=== PATIENT | male | born 1955 | race Caucasian/White ===

== ENCOUNTER 2023-07-08 15:45 | Inpatient (IN) | payer MEDICARE, SELFPAY ==
--- NOTE | ~2023-07-08 | CT_ITS ---
EXAMINATION: CT abdomen pelvis w con DATE: 07/08/2023 19:50 INDICATION: Perisigmoid abscess. TECHNIQUE: Computed tomography (CT) of the abdomen and pelvis was performed with 100 mL Omnipaque 350 intravenous contrast. Automated exposure control and iterative reconstruction technique were employe d. The dose-length product was 171.47 mGy-cm. COMPARISON: None. FINDINGS: The visualized portions of the lung bases demonstrate mild atelectasis. No pleural effusion . The heart size is normal. No pericardial effusion. The liver, spleen, gallbladder, pancreas, adrena l glands, and kidneys are normal. There is calcified atherosclerosis of the aorta and many of the [facility] er arteries. There is wall thickening of the sigmoid colon, which is small in caliber. The colon is d istended proximal to this area. There is a 2.1 x 0.8 x 2.4 cm perisigmoid abscess. The appendix is no rmal. There are no pathologically enlarged lymph nodes. There is no free intraperitoneal fluid. There is a chronic compression fracture of L3. There is moderate thoracic spondylosis and mild lumbar spon dylosis. IMPRESSION: 1. Sigmoid diverticulitis with stricture, 2.1 x 0.8 x 2.4 cm perisigmoid abscess, and partial bowel o bstruction. Reviewed, dictated and finalized at location E. IMPRESSION: 1. Sigmoid diverticulitis with stricture, 2.1 x 0.8 x 2.4 cm perisigmoid absces s, and partial bowel obstruction.
[2023-07-08 15:50] VITALS: BP 163/67; PULSE 100; RESP 18; TEMP 36.4; O2SAT 99
--- NOTE | 2023-07-08 15:55 | ED.GENADULT ---
HPI - General Adult General Chief complaint: Abdominal Pain <[place] PA-C - Last Filed: 07/08/23 15:57> Stated complaint: abscess colon- sent by MD after CT <[place] PA-C - Last Filed: 07/08/23 15:57> Time Seen by Provider: 07/08/23 15:51 <[place] PA-C - Last Filed: 07/08/23 15:57> Focused HPI: This is a 68-year-old male with PMH of COPD who presents to the ED for chief complaint of abdominal pain. Reports that he had an outpatient scan at another facility today ordered by PCP today that showed ?abscess on my colon. ? He reports he was told to go to the ER. Patient reports he has nausea but no vomiting. Denies fevers, chills. Endorses 2 weeks of diarrhea but no GI bleeding symptoms. Denies chest pain, shortness of breath, cough, flank pain or urinary symptoms. GENERAL: Well-appearing, well-nourished, and in no acute distress. HEAD: Normocephalic, atraumatic. CHEST: Clear to auscultation. No respiratory distress. HEART: Regular rate and rhythm. ABD: Mild lower abdominal tenderness. Abdomen is soft, no rigidity. NEURO: Alert and oriented x3. Patient screened in triage and initial orders placed. Additional care and disposition to be based upon diagnostic testing and treatment. <[place] PA-C - Last Filed: 07/08/23 15:57> History of Present Illness HPI narrative: 68-year-old male with history of COPD presents to the emergency department for concerns for a colonic abscess. Patient states he has had watery diarrhea for approximately 2 weeks. States he has been going to be 90 20 times per day. He was seen by his PCP earlier today and an outpatient CT abdomen pelvis was obtained. Patient was contacted and advised to come to the ED for further evaluation to [place] reports pain of a suspected abscess in the sigmoid colon. The patient states he has never had symptoms like this before, no prior history of colon cancer. He has not had a colonoscopy but states he had a Cologuard test approximately 3 years ago that was normal. He denies melena or hematochezia, fevers, vomiting. He does endorse some nausea. Denies dysuria or hematuria, recent surgeries or hospitalizations, recent travel. He was prescribed Bactrim by his PCP on 07/05/2023 which she is still taking. <Sofia Norris PA-C - Last Filed: 07/09/23 02:35> Related Data Home medications: Home Medications Medication Instructions Recorded Confirmed dicyclomine 20 mg tablet 20 mg PO QID 07/08/23 07/08/23 fluticasone 250 mcg-salmeterol 50 1 inh inhalation BID PRN SHORTNESS 07/08/23 07/08/23 mcg/dose blistr powdr for OF BREATH inhalation sulfamethoxazole 800 1 tablet PO BID 07/08/23 07/08/23 mg-trimethoprim 160 mg tablet zolpidem 10 mg tablet 10 mg PO HS 07/08/23 07/08/23 <[place] PA-C - Last Filed: 07/08/23 15:57> Allergies/adverse reactions: Allergies Allergy/AdvReac Type Severity Reaction Status Date / Time No Known Allergies Allergy Verified 07/08/23 15:46 <[place] PA-C - Last Filed: 07/08/23 15:57> Review of Systems Review of Systems: CONSTITUTIONAL: Denies fever, chills, or sweats. EYES: Denies visual changes, redness, or discharge. ENT: Denies rhinorrhea, congestion, sore throat, or otalgia. CARDIOVASCULAR: Denies chest pain, palpitations, or edema. RESPIRATORY: Denies cough or dyspnea. GASTROINTESTINAL: See HPI GENITOURINARY: Denies dysuria or hematuria. SKIN: Denies rash or itching. MUSCULOSKELETAL: Denies back pain, joint pain, or myalgia. NEUROLOGIC: Denies headache, numbness, or weakness. PSYCHIATRIC: Denies anxiety or depression. <Sofia Norris PA-C - Last Filed: 07/09/23 02:35> [facility] Social History Social History: Social History Alcohol intake: former Substance use: never Do You Feel Safe in your Home?: Yes Lack of Transportation: No Lack of Food: Never True Current Housing:
[2023-07-08 16:48] LABS: Basophils Percent Auto 0.4 % (0.2-1.2); Eosinophils Absolute Auto 0.1 K/mm3 (0-0.3); Eosinophils Percent Auto 1.1 % (0-4.4); Hemoglobin 13.6 g/dL (14.0-18.0); Immature Granulocyte Absolute 0.02 K/mm3 (0.00-0.031); Immature Granulocyte Percent A 0.3 % (0-0.5); Lymphocytes Percent Auto 23.8 % (18.3-44.2); Mean Corpuscular Hemoglobin 29.7 pg (26-34); Mean Corpuscular Volume 87.3 fl (80-100); Mean Platelet Volume 9.2 fl (7.4-10.4); Monocytes Absolute Auto 0.7 K/mm3 (0.1-0.6); Neutrophils Percent Auto 65.4 % (45.5-73.1); Platelet Count Result 335 k/mm3 (150-375); Red Blood Count 4.58 M/mm3 (4.6-6.20); Red Cell Distribution Width 12.4 % (11.5-14.5); White Blood Count 7.6 K/mm3 (4.5-10.0)
[2023-07-08 17:00] LABS: Appearance Urine Clear (Clear); Bilirubin Urine Negative (Negative); Blood Urine Negative (Negative); Color Urine Yellow (Yellow); Glucose Urine UA Negative (Negative); Ketones Urine Trace mg/dL (Negative); Leukocyte Esterase Ur Negative LEU/UL (Negative); Nitrate Urine Negative (Negative); Protein Urine Negative (Negative)
[2023-07-08 17:02] LABS: Specific Grav Ur 1.077 (1.001-1.035)
[2023-07-08 17:03] LABS: Add Urine Microscopic? NO; Alanine Aminotransferase 13 U/L (6-50); Albumin Level 4.3 g/dL (3.5-5.1); Alkaline Phosphatase 91 U/L (38-126); Anion Gap 13 mmol/L (4-12); Aspartate Amino Transferase 24 U/L (17-59); Bilirubin,Total 0.6 mg/dL (0.2-1.3); Blood Urea Nitrogen 13 mg/dL (9-20); Calcium 9.4 mg/dL (8.4-10.2); Carbon Dioxide 22 mmol/L (22-30); Chloride 101 mmol/L (98-107); Estimated CRCL calculation 42 ml/min; Estimated Glomerular Filt Rate 60; Glucose 103 mg/dL (65-110); Lipase 57 U/L (23-300); Sodium 136 mmol/L (137-145)
[2023-07-08 17:08] VITALS: BP 153/68; PULSE 87; RESP 20; TEMP 36.7; O2SAT 99
[2023-07-08 18:34] LABS: Magnesium 2.5 mg/dL (1.6-2.3)
[2023-07-08 18:51] LABS: Lactic Acid Reflex 1.1 mmol/L (0.7-2.0)
[2023-07-08] MEDS: POTASSIUM CHLORIDE INJ 40 MEQ in SODIUM CHLORIDE 0.9% IV 500 ML 130 MEQ IVPB (19:18)
[2023-07-08] MEDS: SODIUM CHLORIDE 0.9% IV 1,000 ML 999 ML IV CONT (19:18)
[2023-07-08 20:33] LABS: Toxigenic C. Diff NEGATIVE (NEGATIVE)
[2023-07-08] MEDS: PIPERACILLN/TAZ 3.375GM/NS50ML 3.375 GM/50 ML BAG IVPB (21:58)
--- NOTE | 2023-07-08 22:19 | PM.IMHP ---
H&P: HPI History of Present Illness Date/Time: 07/08/23 22:19 Chief Complaint: diarrhea /abdominal pain Narrative: This is a 68-year-old male with past medical history significant for COPD/ emphysema, patient is smokes half pack to 1 pack a day, presents to the emergency room after 2 weeks of diarrhea, crampy abdominal pain. Patient denies fevers rigors or chills, no nausea or vomiting poor per orally intake. Preliminary workup was significant for CT of abdomen and pelvis with sigmoid diverticulitis and stricture or and perisigmoid abscess. Patient has been admitted for further evaluation management and treatment. EXAMINATION: CT abdomen pelvis w con DATE: 07/08/2023 19:50 INDICATION: Perisigmoid abscess. TECHNIQUE: Computed tomography (CT) of the abdomen and pelvis was performed with 100 mL Omnipaque 350 intravenous contrast. Automated exposure control and iterative reconstruction technique were employed. The dose-length product was 171.47 mGy-cm. COMPARISON: None. FINDINGS: The visualized portions of the lung bases demonstrate mild atelectasis. No pleural effusion. The heart size is normal. No pericardial effusion. The liver, spleen, gallbladder, pancreas, adrenal glands, and kidneys are normal. There is calcified atherosclerosis of the aorta and many of the other arteries. There is wall thickening of the sigmoid colon, which is small in caliber. The colon is distended proximal to this area. There is a 2.1 x 0.8 x 2.4 cm perisigmoid abscess. The appendix is normal. There are no pathologically enlarged lymph nodes. There is no free intraperitoneal fluid. There is a chronic compression fracture of L3. There is moderate thoracic spondylosis and mild lumbar spondylosis. IMPRESSION: 1. Sigmoid diverticulitis with stricture, 2.1 x 0.8 x 2.4 cm perisigmoid abscess, and partial bowel obstruction. Review of Systems Review of Systems: Abdominal pain, diarrhea Constitutional: Constitutional: Denies chills, Denies fever(s), Denies night sweats and Reports poor appetite Eyes: Eyes: Denies change in vision ENT: Denies dysphagia and Denies odynophagia Cardiovascular: Cardiovascular: Denies chest pain, Denies radiating jaw, neck or arm pain and Denies palpitations Respiratory: Respiratory: Denies cough, Denies excessive phlegm production and Denies dyspnea Gastrointestinal: Gastrointestinal: Reports abdominal pain, Reports diarrhea, Denies nausea and Denies vomiting Genitourinary: Genitourinary: Denies dysuria Musculoskeletal: Musculoskeletal: Denies myalgias and Denies arthralgias Integumentary/Breasts: Skin/Breast: Denies rash Neurologic: Denies focal weakness and Denies Sensory deficit (Neuro) Psychiatric: Psychiatric: Reports no additional psychiatric complaints and Reports as per HPI Endocrine: Endocrine: Denies cold intolerance, Denies heat intolerance, Denies polyphagia, Denies polydipsia, Denies polyuria and Denies palpitations Hematologic/Lymphatic: Hematologic/Lymphatic: Reports no additional hematologic/lymphatic complaints and Reports as per HPI Allergic/Immunologic: Allergic/Immunologic: Reports no additional allergic/immunologic complaints and Reports as per HPI [facility] Social History Social History Alcohol intake: former Substance use: never Do You Feel Safe in your Home?: Yes Lack of Transportation: No Lack of Food: Never True Current Housing: I Have Housing Concerned About Future Housing: No Difficulty Paying Gas/Electric Bills: No Difficulty Paying for Meds: No Currently Unemployed: No Education: High School Diploma/GED Difficulty w/ Childcare or Family Care: No Spiritual care concerns: No Meds Home Medications and Allergies Home Medications Medication Instructions Recorded Confirmed Type dicyclomine 20 mg tablet 20 mg PO QID 07/08/23 07/08/23 History fluticasone 250 mcg-salmeterol 50 1 inh inhalation B
[2023-07-08] MEDS: SODIUM CHLORIDE 0.9% IV 1,000 ML 100 ML IV CONT (22:22)
[2023-07-08] MEDS: ONDANSETRON INJ 4 MG/2 ML VIAL IV PUSH (22:39)
--- NOTE | 2023-07-08 22:53 | ADMGEN ---
This patient, Sean Suarez, was admitted to Medical Room 250-01. Patient/family oriented to hospital policies and general routines including ID bracelet, bed and alarms, visiting hours, pain management, procedures, bathroom and other care routines, personal items, smoking policy, room service/diet, and visiting hours. Information on how to activate the Rapid Response Team has been discussed. Patient/Family are encouraged to report perceived risks to care and to ask questions if they do not understand what they are told or what they should do.
[2023-07-08 23:01] VITALS: BP 162/72; PULSE 97; RESP 18; TEMP 36.8; O2SAT 97
[2023-07-08 23:05] VITALS: BMI 20.6
[2023-07-09] MEDS: PIPERACILLN/TAZ 3.375GM/NS50ML 3.375 GM/50 ML BAG IVPB ×3 (05:12→18:43)
[2023-07-09 05:22] VITALS: BP 163/57; PULSE 88; RESP 18; TEMP 36.7; O2SAT 92
[2023-07-09 07:48] VITALS: O2SAT 95
[2023-07-09 08:09] LABS: Basophils Percent Auto 0.4 % (0.2-1.2); Eosinophils Absolute Auto 0.1 K/mm3 (0-0.3); Eosinophils Percent Auto 1.1 % (0-4.4); Hematocrit 37.2 % (42.0-52.0); Hemoglobin 12.4 g/dL (14.0-18.0); Immature Granulocyte Absolute 0.02 K/mm3 (0.00-0.031); Immature Granulocyte Percent A 0.3 % (0-0.5); Lymphocytes Absolute Auto 1.68 K/mm3 (0.9-3.2); Lymphocytes Percent Auto 22.1 % (18.3-44.2); Mean Corpuscular HGB Conc 33.3 g/dl (32-36); Mean Corpuscular Hemoglobin 29.7 pg (26-34); Mean Corpuscular Volume 89.2 fl (80-100); Mean Platelet Volume 8.8 fl (7.4-10.4); Monocytes Absolute Auto 0.7 K/mm3 (0.1-0.6); Monocytes Percent Auto 9.1 % (2.6-8.5); Neutrophils Absolute Auto 5.1 K/mm3 (1.3-6.7); Platelet Count Result 284 k/mm3 (150-375); Red Blood Count 4.17 M/mm3 (4.6-6.20); Red Cell Distribution Width 12.6 % (11.5-14.5); White Blood Count 7.6 K/mm3 (4.5-10.0)
[2023-07-09 08:19] LABS: Alanine Aminotransferase 13 U/L (6-50); Albumin Level 3.5 g/dL (3.5-5.1); Alkaline Phosphatase 79 U/L (38-126); Anion Gap 9 mmol/L (4-12); Aspartate Amino Transferase 22 U/L (17-59); Bilirubin,Total 0.6 mg/dL (0.2-1.3); Blood Urea Nitrogen 10 mg/dL (9-20); Calcium 8.3 mg/dL (8.4-10.2); Carbon Dioxide 18 mmol/L (22-30); Chloride 110 mmol/L (98-107); Estimated CRCL calculation 47 ml/min; Estimated Glomerular Filt Rate > 60; Glucose 78 mg/dL (65-110); Potassium 3.3 mmol/L (3.4-5.0); Sodium 137 mmol/L (137-145)
[2023-07-09] MEDS: SODIUM CHLORIDE 0.9% IV 1,000 ML 100 ML IV CONT ×2 (08:37→21:51)
[2023-07-09] MEDS: DICYCLOMINE HCL 10 MG CAPSULE 20 MG PO ×4 (08:38→21:54)
--- NOTE | 2023-07-09 10:21 | P.PNIM_ITS ---
Progress Note: A&P Assessment and Plan (1) Diverticulitis of large intestine with complication: Code(s): K57.32 - Diverticulitis of large intestine without perforation or abscess without bleeding Status: Acute Assessment and Plan: * Patient presented to the ED with complaints of abdominal pain and diarrhea for 2 weeks * CT of the abd/pel showed perisigmoid abscess * General surgery consulted thank you for your help * Pain and antiemetics ordered * Continue IV Zosyn * NPO for now * continue IV fluids (2) Partial intestinal obstruction: Qualifiers: Intestinal obstruction type: unspecified Qualified Code(s): K56.600 - Partial intestinal obstruction, unspecified as to cause Code(s): K56.600 - Partial intestinal obstruction, unspecified as to cause Status: Acute Assessment and Plan: * As noted on the CT * General surgery on board * Most likely related to the current medical condition * WBC stable * NPO for now * IV fluids continued (3) Abscess of sigmoid colon: Code(s): K63.0 - Abscess of intestine Status: Acute Assessment and Plan: * Noted on the CT * WBC 7.2 * Continue current antibiotic therapy * General surgery on board * Adjust therapy accordingly * Send for cultures upon drainage. (4) COPD with emphysema: Qualifiers: Emphysema type: unspecified Qualified Code(s): J43.9 - Emphysema, unspecified Code(s): J43.9 - Emphysema, unspecified Status: Acute Assessment and Plan: * not actively wheezing * continue inhaler * Not in acute exacerbation * no supplemental oxygen (5) Tobacco dependence: Code(s): F17.200 - Nicotine dependence, unspecified, uncomplicated Status: Acute Assessment and Plan: * nicotine patch as needed Time Spent With Patient Time: 41 minutes Time with patient: Greater than 35 minutes Subjective Date/time seen: 07/09/23 10:21 Interval history: 07/09/23 1021 Patient is lying in bed in often complains of diarrhea. He denies any chest pain, shortness a breath, nausea, vomiting, sweats, fevers, chills. He did state that he feels pretty decent. He also stated that he had some episodes of vomiting yesterday however that has cleared up. He is currently NPO. 07/08/23? 22:19 ?This is a 68-year-old male with past medical history significant for COPD/ emphysema, patient is smokes half pack to 1 pack a day, presents to the emergency room after 2 weeks of diarrhea, crampy abdominal pain.? Patient denies fevers rigors or chills, no nausea or vomiting poor per orally intake.? Preliminary workup was significant for CT of abdomen and pelvis with sigmoid diverticulitis and stricture or and perisigmoid abscess.? Patient has been admitted for further evaluation management and treatment. Review of Systems Review of Systems: All systems reviewed & are unremarkable except as noted in HPI and below Exam Narrative: General: well-nourished, well-appearing 68-year-old male, sitting up in bed, comfortable, NARD Neuro: awake, alert and oriented x4, speech clear, no focal neuro deficits noted HEENMT: normocephalic, atraumatic, EOMI, sclerae anicteric, moist oral mucosa Respiratory: Clear to auscultation bilaterally without crackles, rhonchi or wheezes, nonlabored breathing Cardio: regular rate, regular rhythm with S1-S2 Ab
--- NOTE | 2023-07-09 10:21 | PM.IMPN ---
Progress Note: A&P Assessment and Plan (1) Diverticulitis of large intestine with complication: Code(s): K57.32 - Diverticulitis of large intestine without perforation or abscess without bleeding Status: Acute Assessment and Plan: Patient presented to the ED with complaints of abdominal pain and diarrhea for [address] of the abd/pel showed perisigmoid abscess General surgery consulted thank you for your help Pain and antiemetics ordered Continue IV Zosyn NPO for now continue IV fluids (2) Partial intestinal obstruction: Qualifiers: Intestinal obstruction type: unspecified Qualified Code(s): K56.600 - Partial intestinal obstruction, unspecified as to cause Code(s): K56.600 - Partial intestinal obstruction, unspecified as to cause Status: Acute Assessment and Plan: As noted on the CT General surgery on board Most likely related to the current medical condition WBC stable NPO for now IV fluids continued (3) Abscess of sigmoid colon: Code(s): K63.0 - Abscess of intestine Status: Acute Assessment and Plan: Noted on the CT WBC 7.2 Continue current antibiotic therapy General surgery on board Adjust therapy accordingly Send for cultures upon drainage. (4) COPD with emphysema: Qualifiers: Emphysema type: unspecified Qualified Code(s): J43.9 - Emphysema, unspecified Code(s): J43.9 - Emphysema, unspecified Status: Acute Assessment and Plan: not actively wheezing continue inhaler Not in acute exacerbation no supplemental oxygen (5) Tobacco dependence: Code(s): F17.200 - Nicotine dependence, unspecified, uncomplicated Status: Acute Assessment and Plan: nicotine patch as needed Time Spent With Patient Time: 41 minutes Time with patient: Greater than 35 minutes Subjective Date/time seen: 07/09/23 10:21 Interval history: 07/09/23 1021 Patient is lying in bed in often complains of diarrhea. He denies any chest pain, shortness a breath, nausea, vomiting, sweats, fevers, chills. He did state that he feels pretty decent. He also stated that he had some episodes of vomiting yesterday however that has cleared up. He is currently NPO. 07/08/23? 22:19 ?This is a 68-year-old male with past medical history significant for COPD/ emphysema, patient is smokes half pack to 1 pack a day, presents to the emergency room after 2 weeks of diarrhea, crampy abdominal pain.? Patient denies fevers rigors or chills, no nausea or vomiting poor per orally intake.? Preliminary workup was significant for CT of abdomen and pelvis with sigmoid diverticulitis and stricture or and perisigmoid abscess.? Patient has been admitted for further evaluation management and treatment. Review of Systems Review of Systems: All systems reviewed & are unremarkable except as noted in HPI and below Exam Narrative: General: well-nourished, well-appearing 68-year-old male, sitting up in bed, comfortable, NARD Neuro: awake, alert and oriented x4, speech clear, no focal neuro deficits noted HEENMT: normocephalic, atraumatic, EOMI, sclerae anicteric, moist oral mucosa Respiratory: Clear to auscultation bilaterally without crackles, rhonchi or wheezes, nonlabored breathing Cardio: regular rate, regular rhythm with S1-S2 Abdomen: nondistended, hypoactive bowel sounds, soft, mildly tender with palpation Extremities: no edema, erythema, or tenderness to palpation, DP pulses 2+ bilaterally Skin: no rashes or lesions, warm and dry Psych: appropriate mood and affect, judgment and insight intact Objective Data Vital Signs Vital Signs: Vital Signs - 24 hr 07/08/23 15:50 07/08/23 17:08 07/08/23 23:17 Temperature 97.6 F 98.1 F Pulse Rate 100 87 Respiratory Rate 18 20 Blood Pressure 163/67 H 153/68 H Pulse Oximetry 99 99 Oxygen Delivery Room Air R
--- NOTE | 2023-07-09 13:45 | PM.CNGS ---
Assessment and Plan Assessment and plan (1) Diarrhea in adult patient: Code(s): R19.7 - Diarrhea, unspecified Status: Acute Assessment and Plan: Going on for 2 weeks. Subjectively improving per patient in the last 24 hours. C difficile testing is negative. Infectious colitis testing is pending. May be secondary to diverticulitis but history of diverticulitis is very atypical. (2) Abnormal CT scan, sigmoid colon: Code(s): R93.3 - Abnormal findings on diagnostic imaging of other parts of digestive tract Status: Acute Assessment and Plan: CT shows inflammatory process of the pelvis, most likely diverticulitis, with small perisigmoid abscess. Patient's history and exam today are very incongruent with a diagnosis of acute diverticulitis. He denies having any abdominal pain only the diarrhea. His only complaint of pain was cramping which is relieved by having a bowel movement. His does report that he was much more tender in both lower quadrants when he was examined by his primary care physician and in the emergency room. He is completely nontender this morning. Hard to know if the diagnosis is diverticulitis but if the diarrhea is slowing down and he is less tender, it is likely that whatever the source should be, it is being treated effectively with Zosyn. I will go ahead and start him on full liquids. Recheck labs and exam again tomorrow morning. He has not had a colonoscopy in 30 years so will need 1 once the acute inflammatory process has subsided, usually 4-6 weeks from now. (3) COPD with emphysema: Qualifiers: Emphysema type: unspecified Qualified Code(s): J43.9 - Emphysema, unspecified Code(s): J43.9 - Emphysema, unspecified Status: Chronic (4) Tobacco dependence: Code(s): F17.200 - Nicotine dependence, unspecified, uncomplicated Status: Chronic Assessment and Plan: Advised to quit smoking. History of Present Illness Consult details Consult date: 07/09/23 Reason for consult: other (Diverticulitis with abscess) Requesting physician: Sofia Norris PA-C Narrative: Patient is a 68-year-old man who reports that he had a chicken sandwich meal at [employer] 2 weeks ago, June 24, and within an hour started having diarrhea. He continued to have many stools a day, probably 10-15, since then. He denies having any abdominal pain other than some cramps right before he would go to the bathroom. These cramps would be relieved after bowel movement. He has had no nausea or vomiting. His had the same meal at [employer] and had no symptoms whatsoever. He has not been on any antibiotics for other type of infection in the last month, he reports he has been very healthy until 2 weeks ago. His last colonoscopy is estimated to be about 30 years ago. He is a smoker and has emphysema. He was seen by his primary care physician yesterday who ordered a CT scan of the abdomen and pelvis. This showed evidence of diverticulitis with a small abscess. He was sent to the emergency room and [facility]. He was admitted to the hospitalist for bowel rest and IV antibiotic therapy. He has been started on Zosyn. I was asked to see him in consultation for possible diverticulitis with small abscess. He does think that his diarrhea is slowing down since yesterday. It is not gone. He had AC difficile toxin titer done already and it is was negative. Testing for other infectious colitis etiologies is pending. Review of Systems Review of Systems: All systems reviewed & are unremarkable except as noted in HPI and below (HPI and those items noted below) Constitutional: Constitutional: Denies body ache(s), Denies chills, Denies fever(s) and Denies poor appetite Cardiovascular: Cardiovascular: Denies chest pain, Denies diaphoresis, Denies dyspnea and Denies paroxysmal nocturnal dyspnea Respiratory: Respiratory: Reports as per HPI, Denies chest congestion, Reports coug
[2023-07-09 14:00] VITALS: BP 150/64; PULSE 76; RESP 16; TEMP 36.4; O2SAT 95
[2023-07-09] MEDS: FLUTICASONE/SALMETEROL 115-21 MCG INHALER 1 PUFF 2 PUFF INHALATION (20:31)
[2023-07-09 21:01] VITALS: BP 129/52; PULSE 70; RESP 16; TEMP 37.1; O2SAT 98
[2023-07-10] MEDS: PIPERACILLN/TAZ 3.375GM/NS50ML 3.375 GM/50 ML BAG IVPB ×5 (00:24→23:03)
[2023-07-10 05:28] LABS: Basophils Percent Auto 0.5 % (0.2-1.2); Eosinophils Absolute Auto 0.1 K/mm3 (0-0.3); Eosinophils Percent Auto 1.8 % (0-4.4); Hematocrit 34.3 % (42.0-52.0); Hemoglobin 11.2 g/dL (14.0-18.0); Immature Granulocyte Absolute 0.02 K/mm3 (0.00-0.031); Immature Granulocyte Percent A 0.3 % (0-0.5); Lymphocytes Absolute Auto 1.29 K/mm3 (0.9-3.2); Lymphocytes Percent Auto 19.7 % (18.3-44.2); Mean Corpuscular HGB Conc 32.7 g/dl (32-36); Mean Corpuscular Hemoglobin 29.6 pg (26-34); Mean Corpuscular Volume 90.7 fl (80-100); Mean Platelet Volume 8.9 fl (7.4-10.4); Monocytes Absolute Auto 0.6 K/mm3 (0.1-0.6); Monocytes Percent Auto 8.5 % (2.6-8.5); Neutrophils Absolute Auto 4.5 K/mm3 (1.3-6.7); Neutrophils Percent Auto 69.2 % (45.5-73.1); Platelet Count Result 259 k/mm3 (150-375); Red Blood Count 3.78 M/mm3 (4.6-6.20); Red Cell Distribution Width 12.9 % (11.5-14.5); White Blood Count 6.6 K/mm3 (4.5-10.0)
[2023-07-10 05:29] VITALS: BP 123/60; PULSE 85; RESP 18; TEMP 36.7; O2SAT 95
[2023-07-10 05:47] LABS: Alanine Aminotransferase 12 U/L (6-50); Albumin Level 3.2 g/dL (3.5-5.1); Alkaline Phosphatase 66 U/L (38-126); Anion Gap 9 mmol/L (4-12); Aspartate Amino Transferase 30 U/L (17-59); Bilirubin,Total 0.5 mg/dL (0.2-1.3); Blood Urea Nitrogen 7 mg/dL (9-20); Calcium 7.9 mg/dL (8.4-10.2); Carbon Dioxide 18 mmol/L (22-30); Chloride 109 mmol/L (98-107); Estimated CRCL calculation 57 ml/min; Estimated Glomerular Filt Rate > 60; Glucose 72 mg/dL (65-110); Magnesium 2.2 mg/dL (1.6-2.3); Sodium 136 mmol/L (137-145)
[2023-07-10 08:00] VITALS: PULSE 85; RESP 18; O2SAT 93
[2023-07-10] MEDS: FLUTICASONE/SALMETEROL 115-21 MCG INHALER 1 PUFF 2 PUFF INHALATION (08:27)
[2023-07-10 08:28] VITALS: O2SAT 93
[2023-07-10] MEDS: POTASSIUM CHLORIDE 20 MEQ PACKET (FOR LIQUID) 40 MEQ PO (08:49)
[2023-07-10] MEDS: DICYCLOMINE HCL 10 MG CAPSULE 20 MG PO (08:52)
[2023-07-10] MEDS: SODIUM CHLORIDE 0.9% IV 1,000 ML 100 ML IV CONT (08:56)
--- NOTE | 2023-07-10 09:01 | PM.IMPN ---
Progress Note: A&P Assessment and Plan (1) Diverticulitis of large intestine with complication: Code(s): K57.32 - Diverticulitis of large intestine without perforation or abscess without bleeding Status: Acute Assessment and Plan: Patient presented to the ED with complaints of abdominal pain and diarrhea for [address] of the abdomen/pelvis on admission showed findings of sigmoid diverticulitis with stricture, perisigmoid abscess, and partial small-bowel obstruction He has been evaluated by General surgery, recommendations are appreciated History not entirely consistent with diverticulitis/abscess as patient denies any abdominal pain whatsoever and only bothersome symptom is diarrhea. No leukocytosis, fevers, other infectious markers Continue full liquid diet at this time pending further evaluation from General surgery. He is tolerating this well Continue supportive care including analgesics antiemetics, IV fluids He does appear to be improving on IV Zosyn which will be continued at this time pending completion of stool cultures C diff negative (2) COPD with emphysema: Qualifiers: Emphysema type: unspecified Qualified Code(s): J43.9 - Emphysema, unspecified Code(s): J43.9 - Emphysema, unspecified Status: Chronic Assessment and Plan: Chronic, not in acute exacerbation. Oxygen levels are stable Continue home inhaler (3) Hypokalemia: Code(s): E87.6 - Hypokalemia Status: Acute Assessment and Plan: Secondary to diarrhea Potassium 3.0 today Oral potassium supplement 40 mEq Started on BID supplemenation (4) Tobacco dependence: Code(s): F17.200 - Nicotine dependence, unspecified, uncomplicated Status: Chronic Assessment and Plan: Will need smoking cessation education Continue nicotine patch Subjective Date/time seen: 07/10/23 09:01 Interval history: Sean is feeling improved today. He notes that his diarrhea is becoming less frequent in his stools have been slightly more formed. He reports since about midnight last night he has had 6 loose stools. He denies abdominal pain, cramping, or bloating. He is tolerating his liquid diet. Denies nausea, vomiting, fever, chills. He is ambulating without difficulty. Denies dizziness, lightheadedness, weakness. Review of Systems Review of Systems: All systems reviewed & are unremarkable except as noted in HPI and below Exam Narrative: General: Thin, well-appearing 68-year-old male, sitting up in bed, comfortable, NARD Neuro: awake, alert and oriented x4, speech clear, no focal neuro deficits noted HEENMT: normocephalic, atraumatic, EOMI, sclerae anicteric Respiratory: clear to auscultation bilaterally, nonlabored breathing Cardio: regular rate, regular rhythm with S1-S2 Abdomen: nondistended, normoactive bowel sounds, soft, nontender to palpation Extremities: no edema, erythema, or tenderness to palpation Skin: no rashes or lesions, warm and dry Psych: appropriate mood and affect, judgment and insight intact Objective Data Vital Signs Vital Signs: Vital Signs - 24 hr 07/09/23 14:00 07/09/23 21:01 07/09/23 21:50 Temperature 97.6 F 98.7 F Pulse Rate 76 70 Respiratory Rate 16 16 Blood Pressure 150/64 H 129/52 L Pulse Oximetry 95 98 Oxygen Delivery Room Air 07/10/23 05:29 07/10/23 08:28 Temperature 98.1 F Pulse Rate 85 Respiratory Rate 18 Blood Pressure 123/60 Pulse Oximetry 95 93 Oxygen Delivery Room Air Intake/Output Intake/Output: Intake & Output 07/07/23 07/08/23 07/09/23 07/10/23 23:59 23:59 23:59 23:59 Intake Total 1050 2150 1400 Output Total 0 Balance 1050 2150 1400 Meds/Results Medications: Active Medications Generic Name Dose Route Start Last Admin Trade Name Freq PRN Reason Stop Dose Admin Dicyclomine HCl 20 mg 07/09/23 09:00 07/10/23 08:52 Dicyclomine Hcl 10 Mg Capsule PO 07/15/23 21:
[2023-07-10] MEDS: ENOXAPARIN 40 MG/0.4 ML SYRINGE SUB-Q (09:41)
[2023-07-10] MEDS: KCL 40 MEQ/0.9% SOD CHL 1,000 ML 80 ML IV CONT ×2 (09:41→22:54)
--- NOTE | 2023-07-10 10:58 | PM.PNGS ---
Progress Note: A&P Assessment and Plan (1) Diarrhea in adult patient: Code(s): R19.7 - Diarrhea, unspecified Status: Acute Assessment and Plan: Still multiple stools but the extreme urgency he was experiencing before is much better. C difficile, Campylobacter, E coli and Shigella toxins are all negative. Pending Salmonella and Shigella culture. Looking more like this is secondary to diverticulitis with abscess. Continue IV antibiotics and I will start some Imodium. He tolerated full liquids, will advanced to low-fiber diet. (2) Abnormal CT scan, sigmoid colon: Code(s): R93.3 - Abnormal findings on diagnostic imaging of other parts of digestive tract Status: Acute Assessment and Plan: Consistent with diverticulitis with small indra sigmoid abscess, some evidence of partial bowel obstruction although clinically does not appear to so. Continue IV Zosyn antibiotics. Still has no abdominal pain and no tenderness on exam. (3) Tobacco dependence: Code(s): F17.200 - Nicotine dependence, unspecified, uncomplicated Status: Chronic (4) COPD with emphysema: Qualifiers: Emphysema type: unspecified Qualified Code(s): J43.9 - Emphysema, unspecified Code(s): J43.9 - Emphysema, unspecified Status: Chronic (5) Hypokalemia: Code(s): E87.6 - Hypokalemia Status: Acute Assessment and Plan: Being supplemented p.o. and with IV fluid. Continue to monitor. Subjective Subjective Date/Time Seen: 07/10/23 10:58 Patient reports: no new complaints, tolerating liquids well, diarrhea (Has had 6 BMs since midnight. Urgency is improved.) and afebrile Review of Systems Review of Systems: All systems reviewed & are unremarkable except as noted in HPI and below (HPI) Exam Const: General: cooperative, comfortable, no acute distress, alert, awake and thin Nutritional Appearance: thin Orientation/consciousness: patient oriented x3 Limitations: no limitations Cardio: Bruits: Abdominal aortic bruit present (And both iliac arteries) and carotid bruit (Has had previous right carotid endarterectomy) bilaterally GI: Inspection: normal to inspection, non-distended and scaphoid GI Palp: Yes Soft to palpation, No Tenderness to palpation present (GI), No Guarding due to palpation present (GI) and No Rebound tenderness present Auscultation: Hypoactive bowel sounds present Neuro: General: patient oriented x3 and no focal motor deficits Extrem: General: no calf tenderness and no edema Psych: Affect: normal affect Insight: Good insight present (Psych) Judgement: Good judgement present (Psych) Objective Data Vital Signs Vital Signs: Vital Signs - 24 hr 07/09/23 14:00 07/09/23 21:01 07/09/23 21:50 Temperature 36.4 C 37.1 C Pulse Rate 76 70 Respiratory Rate 16 16 Blood Pressure 150/64 H 129/52 L Pulse Oximetry 95 98 Oxygen Delivery Room Air 07/10/23 05:29 07/10/23 08:28 Temperature 36.7 C Pulse Rate 85 Respiratory Rate 18 Blood Pressure 123/60 Pulse Oximetry 95 93 Oxygen Delivery Room Air Intake/Output Intake/Output: Intake & Output 07/07/23 07/08/23 07/09/23 07/10/23 23:59 23:59 23:59 23:59 Intake Total 1050 2150 1400 Output Total 0 Balance 1050 2150 1400 Meds/Results Medications: Active Medications Generic Name Dose Route Start Last Admin Trade Name Freq PRN Reason Stop Dose Admin Dicyclomine HCl 20 mg 07/09/23 09:00 07/10/23 08:52 Dicyclomine Hcl 10 Mg Capsule PO 20 mg QID [facility] Administration Enoxaparin Sodium 40 mg 07/11/23 09:00 Enoxaparin 40 Mg/0.4 Ml Syringe SUB-Q DAILY [facility] Piperacillin/Tazobactam/Dextrose 3.375 gm in 50 mls @ 100 mls/hr 07/09/23 06:00 07/10/23 05:45 Zosyn 3.375 Gm/Ns 50 Ml IVPB Infused Q6HR [facility] Infusion Potassium Chloride/Sodium Chloride 1,000 mls @ 80 mls/hr 07/10/23 09:30 07/10/23 09:41 Kcl 40 Meq/Ns IV CONT 80 mls/hr .[id number] [facility] Admi
[2023-07-10] MEDS: LOPERAMIDE HCL 2 MG CAPSULE 4 MG PO (12:31)
[2023-07-10 14:00] VITALS: BP 150/67; PULSE 88; RESP 16; TEMP 36.6; O2SAT 97
[2023-07-10] MEDS: POTASSIUM CHLORIDE 20 MEQ ER TABLET PO (17:13)
[2023-07-10 20:40] VITALS: PULSE 88; RESP 16; O2SAT 97
[2023-07-10 22:00] VITALS: BP 155/70; PULSE 88; RESP 18; TEMP 36.4; O2SAT 98
[2023-07-11 05:45] LABS: Hematocrit 32.2 % (42.0-52.0); Hemoglobin 10.6 g/dL (14.0-18.0); Mean Corpuscular HGB Conc 32.9 g/dl (32-36); Mean Corpuscular Hemoglobin 29.5 pg (26-34); Mean Corpuscular Volume 89.7 fl (80-100); Mean Platelet Volume 9.1 fl (7.4-10.4); Platelet Count Result 249 k/mm3 (150-375); Red Blood Count 3.59 M/mm3 (4.6-6.20); Red Cell Distribution Width 12.8 % (11.5-14.5); White Blood Count 5.4 K/mm3 (4.5-10.0)
[2023-07-11] MEDS: PIPERACILLN/TAZ 3.375GM/NS50ML 3.375 GM/50 ML BAG IVPB (05:54)
[2023-07-11 06:00] VITALS: BP 151/76; PULSE 91; RESP 20; TEMP 36.8; O2SAT 98
[2023-07-11 06:12] LABS: Anion Gap 5 mmol/L (4-12); Blood Urea Nitrogen 5 mg/dL (9-20); Calcium 8.2 mg/dL (8.4-10.2); Carbon Dioxide 19 mmol/L (22-30); Chloride 115 mmol/L (98-107); Estimated CRCL calculation 64 ml/min; Estimated Glomerular Filt Rate > 60; Glucose 88 mg/dL (65-110); Magnesium 2.1 mg/dL (1.6-2.3); Potassium 3.6 mmol/L (3.4-5.0); Sodium 139 mmol/L (137-145)
[2023-07-11] MEDS: POTASSIUM CHLORIDE 20 MEQ ER TABLET PO (08:21)
[2023-07-11 09:42] VITALS: O2SAT 96
[2023-07-11] MEDS: FLUTICASONE/SALMETEROL 115-21 MCG INHALER 1 PUFF 2 PUFF INHALATION (09:42)
--- NOTE | 2023-07-11 10:50 | P.DS_ITS ---
DS: Admitting Diagnosis Discharge Date 07/11/2023 Admitting Diagnosis * Diarrhea in adult * DS: Summary Time Spent with Patient Time attestation: Total time spent providing and/or coordinating discharge services: DS: Data Data Completed and Pending Labs on day of discharge: Labs from last 24 hours 07/11/23 05:22 WBC 5.4 RBC 3.59 L Hgb 10.6 L Hct 32.2 L MCV 89.7 MCH 29.5 MCHC 32.9 RDW 12.8 Plt Count 249 MPV 9.1 Sodium 139 Potassium 3.6 Chloride 115 H Carbon Dioxide 19 L Anion Gap 5 BUN 5 L Creatinine 0.80 Estim Creat Clear Calc 64 Estimated GFR > 60 Glucose 88 Calcium 8.2 L Magnesium 2.1 Preliminary micro results at discharge 07/08/23 21:36 Blood Culture - Preliminary Blood 07/08/23 21:36 Blood Culture - Preliminary Blood Discharge Plan Discharge Consulting providers: Dejuan Hogue; [place] Patient Instructions: Low Fiber Diet (ED) Discharge Medications: No Action fluticasone propion-salmeterol 250-50 mcg/dose blister with device 1 inh INHALATION BID PRN (Reason: SHORTNESS OF BREATH) sulfamethoxazole-trimethoprim 800-160 mg tablet 1 tablet PO BID dicyclomine 20 mg tablet 20 mg PO QID Rx Instructions: FOR 7 DAYS- PT HAS NOT PICKD UP MEDS YET zolpidem 10 mg tablet 10 mg PO HS Date of admission: 07/09/23 16:08 Primary Care Provider: Carleen,Stephen Zaldivar Admitting Provider: Emma Posadas V. Attending physician on admission: Emma Posadas V. Condition: Stable
--- NOTE | 2023-07-11 10:53 | PM.PNGS ---
Progress Note: A&P Assessment and Plan (1) Diverticulitis of large intestine with abscess without bleeding: Code(s): K57.20 - Diverticulitis of large intestine with perforation and abscess without bleeding Status: Acute Assessment and Plan: Patient tolerating solid food well. He is no longer having diarrhea after single dose of Imodium yesterday. He has not had any abdominal pain since I have been seeing him in the hospital. Okay to discharge today on Augmentin for another 5 days and low-fiber diet. I will see him back in the office in 2 weeks. (2) Diarrhea in adult patient: Code(s): R19.7 - Diarrhea, unspecified Status: Acute Assessment and Plan: None since yesterday after single dose of Imodium. All infectious colitis testing has been negative. Blood cultures negative. Most likely a result of the associated inflammatory process and abscess with diverticulitis. (3) COPD with emphysema: Qualifiers: Emphysema type: unspecified Qualified Code(s): J43.9 - Emphysema, unspecified Code(s): J43.9 - Emphysema, unspecified Status: Chronic (4) Tobacco dependence: Code(s): F17.200 - Nicotine dependence, unspecified, uncomplicated Status: Chronic Subjective Subjective Date/Time Seen: 07/11/23 10:53 Patient reports: feels better, tolerating a regular diet, afebrile and other (Patient feels much better. No diarrhea since single dose of Imodium yesterday. Tolerating soft diet well. Would like to go home.) Review of Systems Review of Systems: All systems reviewed & are unremarkable except as noted in HPI and below (HPI) Exam Const: General: comfortable and no acute distress Orientation/consciousness: patient oriented x3 GI: Inspection: normal to inspection, non-distended and scaphoid GI Palp: Yes Soft to palpation, No Tenderness to palpation present (GI), No Guarding due to palpation present (GI), No Palpable mass present, No Ascites present and No Rebound tenderness present Auscultation: normal bowel sounds Neuro: General: patient oriented x3 and no focal motor deficits Extrem: General: no calf tenderness and no edema Psych: Affect: normal affect Insight: Good insight present (Psych) Judgement: Good judgement present (Psych) Objective Data Vital Signs Vital Signs: Vital Signs - 24 hr 07/10/23 14:00 07/10/23 20:40 07/10/23 22:00 Temperature 36.6 C 36.4 C L Pulse Rate 88 88 88 Respiratory Rate 16 16 18 Blood Pressure 150/67 H 155/70 H Pulse Oximetry 97 97 98 Oxygen Delivery Room Air 07/11/23 06:00 07/11/23 08:45 07/11/23 09:42 Temperature 36.8 C Pulse Rate 91 Respiratory Rate 20 Blood Pressure 151/76 H Pulse Oximetry 98 96 Oxygen Delivery Room Air Room Air Intake/Output Intake/Output: Intake & Output 07/08/23 07/09/23 07/10/23 07/11/23 23:59 23:59 23:59 23:59 Intake Total 1050 2150 3430 570 Output Total 0 Balance 1050 2150 3430 570 Meds/Results Medications: Active Medications Generic Name Dose Route Start Last Admin Trade Name Freq PRN Reason Stop Dose Admin Dicyclomine HCl 20 mg 07/09/23 09:00 07/10/23 08:52 Dicyclomine Hcl 10 Mg Capsule PO 20 mg QID [facility] Administration Enoxaparin Sodium 40 mg 07/11/23 09:00 07/11/23 08:22 Enoxaparin 40 Mg/0.4 Ml Syringe SUB-Q Not Given DAILY [facility] Piperacillin/Tazobactam/Dextrose 3.375 gm in 50 mls @ 100 mls/hr 07/09/23 06:00 07/11/23 05:54 Zosyn 3.375 Gm/Ns 50 Ml IVPB 100 mls/hr Q6HR [facility] Administration Potassium Chloride/Sodium Chloride 1,000 mls @ 80 mls/hr 07/10/23 09:30 07/10/23 22:54 Kcl 40 Meq/Ns IV CONT 80 mls/hr .[id number] [facility] Administration Loperamide HCl 2 mg 07/10/23 10:56 Loperamide Hcl 2 Mg Capsule PO PRN PRN Diarrhea Morphine Sulfate 4 mg 07/08/23 21:37 Morphine Sulfate (*Crx) 4 Mg/Ml Inj IV PUSH Q2H PRN Pain Rated 7-10 Nicotine 1 patch 07/09/23 09:00 07/11/23
--- NOTE | 2023-07-11 11:15 | PM.DS ---
DS: Admitting Diagnosis Discharge Date 07/11/23 Admitting Diagnosis Diarrhea/abdominal pain DS: Discharge Diagnosis Discharge Diagnosis (1) Diverticulitis of large intestine with complication: Code(s): K57.32 - Diverticulitis of large intestine without perforation or abscess without bleeding Status: Acute Assessment and Plan: CT of the abdomen/pelvis on admission showed findings of sigmoid diverticulitis with stricture, perisigmoid abscess, and partial small-bowel obstruction History not entirely consistent with diverticulitis/abscess as patient denies any abdominal pain whatsoever and only bothersome symptom is diarrhea. No leukocytosis, fevers, other infectious markers S/P IV Zosyn, d/c on Augmentin Q8 C diff negative (2) COPD with emphysema: Qualifiers: Emphysema type: unspecified Qualified Code(s): J43.9 - Emphysema, unspecified Code(s): J43.9 - Emphysema, unspecified Status: Chronic Assessment and Plan: Chronic, not in acute exacerbation. Oxygen levels are stable Continue home inhaler (3) Hypokalemia: Code(s): E87.6 - Hypokalemia Status: Resolved Assessment and Plan: Continue oral supplementation at discharge (4) Tobacco dependence: Code(s): F17.200 - Nicotine dependence, unspecified, uncomplicated Status: Chronic Assessment and Plan: smoking cessation education Continue nicotine patch DS: Summary Hospital Course Hospital Course: Patient is a 68-year-old male with PMH of COPD (emphysema), current smoker of half pack to 1 pack a day, admitted after 2 weeks of diarrhea and abdominal cramping. Patient denied fevers or chills or other viral symptoms. He has never had a prior colonoscopy. Preliminary workup was significant for CT of abdomen and pelvis with sigmoid diverticulitis and stricture or and perisigmoid abscess. C diff testing was negative, infectious colitis testing done. General surgery was consulted. He received IV Zosyn while inpatient. Condition continued to improve. He is tolerating a low-fat diet, will DC on Augmentin for additional 5 days and he is to follow up with surgery in 2 weeks. Status at Discharge Functional status at discharge: independent ambulation Overall status at discharge: patient is progressing back to baseline Time Spent with Patient Time attestation: Total time spent providing and/or coordinating discharge services: Exam Narrative: General: Thin, well-appearing sitting up in bed, in no distress HEENMT: normocephalic, atraumatic, EOMI, PERRLA Respiratory: Lungs clear to auscultation bilaterally Cardio: RRR with S1-S2, no murmurs Abdomen: soft, nondistended, nontender to palpation, BS present in all quadrants Extremities: no edema, normal ROM Skin: no rashes or lesions, warm and dry Neuro: awake, alert and oriented x4, speech clear, no focal deficits Psych: appropriate mood and affect, pleasant and cooperative DS: Data Data Completed and Pending Labs on day of discharge: Labs from last 24 hours 07/11/23 05:22 WBC 5.4 RBC 3.59 L Hgb 10.6 L Hct 32.2 L MCV 89.7 MCH 29.5 MCHC 32.9 RDW 12.8 Plt Count 249 MPV 9.1 Sodium 139 Potassium 3.6 Chloride 115 H Carbon Dioxide 19 L Anion Gap 5 BUN 5 L Creatinine 0.80 Estim Creat Clear Calc 64 Estimated GFR > 60 Glucose 88 Calcium 8.2 L Magnesium 2.1 Preliminary micro results at discharge 07/08/23 21:36 Blood Culture - Preliminary Blood 07/08/23 21:36 Blood Culture - Preliminary Blood Discharge Plan Discharge Attending physician on discharge: Francisco Polk Consulting providers: Dejuan Hogue; [place] Discharging Clinician: Vonda Melendrez Anticipated Discharge Date/Time: 07/11/23 11:10 Patient Disposition: Home, Self-Care Activity: as tolerated Diet: low fiber Discharge Instructions: Read instruction sheet on low-fiber diet and
--- NOTE | 2023-07-14 09:01 | PC.NURSE ---
Blood cx are negative.
== END 2023-07-11 11:35 | disposition home or self-care (01) | DRG 392 ==
LOC: ANHED 18:41 → ANH2MED 22:33
PROVIDERS: Nurse Practitioner; Physician Assistant; Surgery; Admitting Provider Internal Medicine; Emergency Provider Physician Assistant; PCP Family Medicine; Visit Provider Nurse Practitioner
DX: K57.20 Diverticulitis of large intestine with perforation and abscess without bleeding (principal); K56.600 Partial intestinal obstruction, unspecified as to cause; J44.9 Chronic obstructive pulmonary disease, unspecified; E87.6 Hypokalemia; F17.210 Nicotine dependence, cigarettes, uncomplicated
CPT/HCPCS: 36415; 74177; 80048; 80053; 81003; 83605; 83690; 83735; 85025; 85027; 87040; 87045; 87427; 87449; 87493; 94640; 96361; 96365; 96375; 99285; A9270; G0378; J1650; J2405; J2543; J3480; J7030; J7040; Q9967